=== PATIENT | female | born 2000 | race Caucasian/White ===

== ENCOUNTER 2025-07-30 19:28 | Inpatient (IN) | payer SELFPAY, OTHER ==
[2025-07-30 19:49] VITALS: BP 131/82; PULSE 115; PULSE 118; RESP 16; TEMP 36.6; O2SAT 94
[2025-07-30 20:20] VITALS: BMI 24.7
[2025-07-31] VITALS (20 sets, daily range): BP systolic 114–136; BP diastolic 69–91; PULSE 82–116; RESP 16–18; TEMP 36.1–36.8; O2SAT 95–99
[2025-07-31 05:52] LABS: Hematocrit 35.1 % (37-47); Hemoglobin 12.2 g/dL (12.0-15.0); Immature Granulocytes Count 0.050 X10^3/uL (0.0-0.0); Mean Corp Hgb Conc 34.8 g/dL (32-36); Mean Corpuscular Volume 94.6 fL (81-99); Mean Platelet Vol. 10.0 fl (6.2-12.0); NRBC Flagged by Analyzer 0 % (0-5); Platelet Count 194 K/mm3 (150-450); RBC Distribution Width CV 12.9 % (11.6-14.6); RBC Distribution Width SD 44.5 fl (35.1-43.9); Red Blood Count 3.71 M/mm3 (4.2-5.4); White Blood Count 8.7 K/mm3 (4.4-11.0)
[2025-07-31 06:37] LABS: Hepatitis C Antibody Nonreactive (Nonreactive)
[2025-07-31 07:12] LABS: HIV Nonreactive (Nonreactive); Hepatitis B Surface Antigen Nonreactive (Nonreactive); Syphilis Antibodies Nonreactive (Nonreactive)
--- OUTSIDE RECORDS SUMMARY | 2025-07-31 08:20 | XMS RPT_ITS | CCD ---
Author Organization [facility] CliniSywy Care Team Providers Care Landscaper Name Role Phone EZ BULLOCK Attending Unavailable EZ BULLOCK Primary Care Unavailable EZ BULLOCK Admitting Unavailable [place], FLEX LOTT-LYNETTE Attending Unavailabl e [place], FLEX LOTT-LYNETTE Primary Care Unavailabl e [place], FLEX CARDOSO Admitting Unavailabl e Problems Problem Classification Problem Date Documented Da te Episodic/Chronic Other complications of (3 sources) Maternal care for other known or suspected poor growth, third trimester, not applicable or unspecified; Translations: [Maternal care for other known or suspected poor growth, third trimester, not applicable or unspecified] Onset: 07-27-2025 Episodic Residual codes; unclassified (1 source) 34 weeks gestation of ; Translations: [34 weeks gestation of ] Onset: 07-27-2025 Episodic Results Test Name Value Interpretation Reference Range Facil ity US BIOPYHSICAL PROFILE (FETA L)W/O NON STon 07-27-2025 US BIOPYHSICAL PROFILE ()W/O NON [address] [address] Patient: ARLEHT BORGES Phone#: : 2000 Age: 25 Gender: F Pt. Type: Out Account: [id number] Location: Ordering: FLEX GARIBAY Exam Date: 07/27/2025/14:06 Family Phys: Charge Code: [id number] Physician: Collin Order #: [id number] Dose#: PROCEDURE: US BIOPYHSICAL PROFILE ()W/O NON ST COMPARISON: None. INDICATIONS: Suspected small for gestational age or growth restriction. TECHNIQUE: Complete sonographic examination for obstetrical and evaluation. FINDINGS: NUMBER: Single. POSITION: Vertex. AMNIOTIC FLUID VOLUME: Normal for age with RAJNI of 11.0 cm. PLACENTA LOCATION: Fundal left lateral. ESTIMATED WEIGHT: 2409 grams/5 pounds 5 ounces HEART RATE: 139 bpm ABNORMALITIES/OTHER: None. CLINICAL GA: 38 weeks 4 days CLINICAL ANI: August 06, 2025 ULTRASOUND GA: 34 weeks 3 days ULTRASOUND ANI: September 04, 2025 BIOPHYSICAL PROFILE: MOVEMENTS: 2 BREATHIN TONE: 2 CARDIAC ACCEL: - AMNIOTIC FLUID: 2 CONCLUSION: 1. SL IUP 34 weeks 3 days, ANI September 04, 2025 ultrasound age is less than clinical age. 2. BPP is 8/8 Dictated by: Angela Taylor MD on 07/27/2025 at 16:26 Approved by: Angela Taylor MD on 07/27/2025 at 16:30 Normal [facility] CT NECK W/CONTRASTon 023 CT NECK W/CONTRAST [place] [address] Patient: ARLETH WKON Phone#: : 2000 Age: 22 Gender: F Pt. Type: Out Account: [id number] Location: Ordering: EZ BULLOCK Exam Date: 02/06/2023/10:49 Family Phys: Charge Code: [id number] Physician: Collin Order #: [id number] Dose#: 5.4 mGy PROCEDURE: CT NECK WITH CONTRAST COMPARISON: None. INDICATIONS: Cervical lymphadenopathy. TECHNIQUE: After obtaining the patient's consent, CT images were created with non-ionic intravenous contrast material. All CT scans at this facility use dose modulation, iterative reconstruction, and/or weight based dosing when appropriate to reduce radiation dose to as low as reasonably achievable. IV CONTRAST: Omnipaque 350,60ml TOTAL DOSE: 5.4 CTDIvol(mGy) FINDINGS: NASOPHARYNX: Normal. Fossae of Rosenmuller and torus tubarius are symmetric. ORAL CAVITY: Normal. No visible mass. OROPHARYNX: Normal. Faucial and lingual tonsils are symmetric. HYPOPHARYNX: Normal. No mass or other visible lesion. LARYNX: Normal. The vocal cords are symmetric and without mass. SINUSES: Normal. Limited views show no significant fluid or mucosal thickening. NECK GLANDS: Normal. The parotid, submandibular, and thyroid glands are unremarkable. LYMPH NODES: Normal. No pathological-appearing or enlarged lymph nodes. SKULL BASE: Normal. Foramina are symmetric without bony erosion. VASCULATURE: Normal. Limited views are unremarkable. 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 There is straightening of the normal cervical lordosis. OTHER: Normal. No additional imaging findings. CONCLUSION: 1. There is no evidence focal soft tissue abnormality. 2. There is straightened cervical lordosis. 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 Dictated by: Angela Taylor MD on 02/06/2023 at 16:31 Continued Report - Page 2 of 2 Patient: ARLETH KWON Phone#: : 2000 Age: 22 Gender: F Pt. Type: Out Account: [id number] Location: Ordering: EZ BULOLCK Exam Date: 02/06/2023/10:49 Family Phys: Charge Code: [id number] Physician: Collin Order #: [id number] Dose#: 5.4 mGy Approved by: Angela Taylor MD on 02/06/2023 at 16:34 Normal [facility] BREAST BILAT COMPLETEon 0 02-06-2023 BREAST BILAT COMPLETE [place] [address] Patient: ARLETH KWON Phone#: : 2000 Age: 22 Gender: F Pt. Type: Out Account: [id number] Location: Ordering: EZ BULLOCK Exam Date: 02/06/2023/10:09 Family Phys: Charge Code: [id number] Physician: Collin Order #: [id number] Dose#: PROCEDURE: ULTRASOUND BREAST BILAT COMPARISON: None. INDICATIONS: Right sided lump TECHNIQUE: Breast ultrasound was performed, with evaluation focusing on all four quadrants. FINDINGS: DIAGNOSTIC CATEGORY 1--NEGATIVE ASSESSMENT. RIGHT BREAST: No significant suspicious finding. LEFT BREAST: No significant suspicious finding. RECOMMENDATIONS: CLINICAL EVALUATION. PLEASE NOTE: A NORMAL MAMMOGRAM DOES NOT EXCLUDE THE POSSIBILITY OF BREAST CANCER. A CLINICALLY SUSPICIOUS PALPABLE LUMP SHOULD BE BIOPSIED. Dictated by: Merced Garzon MD on 02/06/2023 at 12:41 Approved by: Merced Garzon MD on 02/06/2023 at 12:41 Normal [facility] Encounters Encounter Date Encounter Type Care Provider Facility Start: 07-27-2025 End: 07-27-2025 ambulatory [facility] Start: 02-06-2023 End: 02-06-2023 ambulatory EZ BULLOCK [facility] Payers Date Payer Category Payer Unknown [id number] 2000 Unknown [id number] Unknown Summary Purpose Family History No Family History Records FoundNo Family History Records Found Advance Directives No Advanced Directives Records FoundNo Advanced Directives Records Found Additional Source Comments INFORMATION SOURCE (unrecogn ized section and content) DATE CREATED AUTHOR 02/08/2023 [facility] DATE CREATED AUTHOR AUTHOR'S ORGANIZ ATION 07/29/2025 [facility] FOR RECORDS PERTAINING TO PATIENTS WHO ARE OR HAVE BEEN ENROLLED IN A CHEMICAL DEPENDENCY/SUBSTANCEABUSE PROGRAM, SOME INFORMATION MAY BE OMITTED. This clinical summary was aggregated from multiple sources. Caution should be exercised in using it in the provision of clinical care. This summary normalizes information from multiple sources, and as a consequence, information in this document may materially change the coding, format and clinical context of patient data. In addition, data may be omitted in some cases. CLINICAL DECISIONS SHOULD BE BASED ON THE PRIMARY CLINICAL RECORDS. [facility] [employer] provides no warranty or guarantee of the accuracy or completeness of information in this document.
--- NOTE | 2025-07-31 08:44 | PCM.HP.OB ---
HPI - General General Date of Admission: 07/30/25 HPI Narrative ARLETH BORGES, is a 25 F @ 39 weeks who presents with new diagnosis of IUGR. Her is measuring 4 weeks behind. Previous ultrasound was measuring 13 days behind and her due date was dated based off of consistent regular menses and a positive test at 6 weeks of . Her management department chair from other [facility] states that her fundal heights have dropped off the last few weeks and that is where she got the ultrasound. 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 term PFSH PFSH Home Medications ?Medication ?Instructions ?Recorded ?Last Taken ?Type vit no.95-ferrous 1 tab PO DAILY see provid 07/30/25 07/30/25 12:00 History fumarate 28 mg-folic acid 800 mcg tablet () Allergy/AdvReac Type Severity Reaction Status Date / Time No Known Allergies Allergy Verified 07/30/25 19:53 Surgical History (Updated 07/30/25 @ 20:23 by Elodia Angulo) Hx of tonsillectomy Social History Smoking Status: Never smoker History Elective abortions Hx Para 1 Spontaneous abortions Hx # Term Pregnancies Ectopic pregnancies Hx # Pregnancies Multiple births # of living children NST FHR Rate Baby A Baseline: 130 Variability:: Moderate Accelerations:: 15 x 15 Decelerations:: None NST Reactive:: Yes FHR Category:: Category I Uterine Activity:: irregular ROS Constitutional Constitutional: Reports systems reviewed and no addt'l complaints, except as documented Eyes Eyes: Denies change in vision ENT HEENT: Reports systems reviewed and no addt'l complaints, except as documented; Denies headache(s) Cardiovascular Cardiovascular: Reports systems reviewed and no addt'l complaints, except as documented; Denies chest pain or dyspnea Respiratory/Chest Respiratory/Chest: Reports systems reviewed and no addt'l complaints, except as documented Gastrointestinal Gastrointestinal: Reports systems reviewed and no addt'l complaints, except as documented; Denies abdominal pain Genitourinary Genitourinary: Reports systems reviewed and no addt'l complaints, except as documented, contractions Details: present (irregular) and movement Details: present; Denies dysuria or genital lesions Musculoskeletal Musculoskeletal: Reports systems reviewed and no addt'l complaints, except as documented Neurologic Neurologic: Reports systems reviewed and no addt'l complaints, except as documented Endocrine Endocrinology: Reports systems reviewed and no addt'l complaints, except as documented Vital Signs Vital Signs Vital Signs: 07/30/25 19:49 07/30/25 19:49 07/30/25 19:49 Temperature Temperature Source Pulse Rate 115 H 118 H Respiratory Rate Blood Pressure 131/82 H BP Systolic 131 BP Diastolic 82 Pulse Ox 07/30/25 19:49 07/30/25 19:49 07/30/25 19:49 Temperature Temperature Source Temporal Pulse Rate Respiratory Rate 16 Blood Pressure BP Systolic BP Diastolic Pulse Ox 94 07/30/25 19:49 Temperature 97.9 F Temperature Source Pulse Rate Respiratory Rate Blood Pressure BP Systolic BP Diastolic Pulse Ox Weight Weight: 126 lb 6.4 oz Body Mass Index (BMI) 24.7 Physical Exam Const alert, oriented x3, no apparent distress and healthy appearing HEENT normocephalic and moist oral mucous membranes Head and Scalp: atraumatic Neck full ROM, no lymphadenopathy, supple and thyroid normal General: trachea midline Lymph Lymphatic: no lymphadenopathy noted Chest inspection of chest normal Resp normal respiratory effort Cardio regular rate GI soft to palpation and non-tender GI Narrative: gravid Inspection: gravid external exam normal Manual OB Exam: estimated gestational size appropriate, presentation cephalic, dilated, effaced and station Extremity normal to inspection General Extremity: Negative for edema Skin no rashes or lesions noted Neuro no focal motor deficits and deep tendon reflexes 2+ bilaterally Motor Exam: strength 5/5 throughout and clonus absent Psych mental status grossly normal Labs Labs Labs: Blood Type A NEGATIVE Antibody Screen NEGATIVE Hct 35.1 % (37-47) L Hgb 12.2 g/dL (12.0-15.0) Syphilis Total Ab Nonreactive (Nonreactive) Rubella IgG Antibody Nonreactive (Nonreactive) Hep Bs Antigen Nonreactive (Nonreactive) Hepatitis C Antibody Nonreactive (Nonreactive) HIV 1&2 Antibody Nonreactive (Nonreactive) Assessment & Plan (1) IUGR (intrauterine growth restriction): (2) : (3) Encounter for induction of labor: PLAN: Plan Patient presents IOL, plan management for with pitocin/AROM. Pain management: minimal intervention. GBS unknown- will treat based on risk factors Management of any complications: none I have reviewed the [facility] and made any clinically relevant updates.
[2025-07-31] MEDS: Lactated Ringers 1,000 ML 50 ML IV (08:51)
--- OUTSIDE RECORDS SUMMARY | 2025-07-31 09:09 | XMS RPT_ITS | CCD ---
Author Organization [facility] CliniSyma Care Team Providers Care Superintendent Automotive Name Role Phone EZ BULLOCK Attending Unavailable [...] STon 07-27-2025 US BIOPYHSICAL PROFILE ()W/O NON [address] [address] Patient: ARLETH BORGES Phone#: : 2000 Age: 25 Gender: F Pt. Type: Out Account: [id number] Location: Ordering: FLEX GARIBAY Exam Date: 07/27/2025/14:06 Family Phys: Charge Code: [id number] Physician: [place] Order #: [id number] Dose#: PROCEDURE: US BIOPYHSICAL PROFILE ()W/O NON [...] Taylor MD on 07/27/2025 at 16:[address] [facility] [address] NECK W/CONTRASTon 023 CT NECK W/CONTRAST [place] [address] Patient: ARLETH KWON Phone#: : 2000 Age: 22 Gender: F Pt. Type: Out Account: [id number] Location: Ordering: EZ BULLOCK Exam Date: 02/06/2023/10:49 Family Phys: Charge Code: [id number] Physician: [place] Order #: [id number] Dose#: 5.4 mGy PROCEDURE: CT NECK WITH [...] 22 Gender: F Pt. Type: Out Account: [id number] Location: Ordering: EZ BULLOCK Exam Date: 02/06/2023/10:49 Family Phys: Charge Code: [id number] Physician: [place] Order #: [id number] Dose#: 5.4 mGy Approved by: Angela Taylor MD on 02/06/2023 at 16:34 Normal [facility] BREAST BILAT COMPLETEon 0 02-06-2023 BREAST BILAT COMPLETE [place] [address] Patient: ARLETH KWON Phone#: : 2000 Age: 22 Gender: F Pt. Type: Out Account: [id number] Location: Ordering: EZ BULLOCK Exam Date: 02/06/2023/10:09 Family Phys: Charge Code: [id number] Physician: [place] Order #: [id number] Dose#: PROCEDURE: ULTRASOUND BREAST BILAT COMPARISON: None. [...] Garzon MD on 02/06/2023 at 12:41 Normal [facility] Encounters Encounter Date Encounter Type Care Provider Facility Start: 07-27-2025 End: 07-27-2025 ambulatory [facility] Start: 02-06-2023 End: 02-06-2023 ambulatory EZ BULLOCK [facility] Payers Date Payer Category Payer Unknown [id number] 2000 Unknown [id number] Unknown Summary Purpose Family History No Family History Records FoundNo Family History Records Found Advance Directives No Advanced Directives Records FoundNo Advanced Directives Records Found Additional Source Comments INFORMATION SOURCE (unrecogn ized section and content) DATE CREATED AUTHOR 02/08/2023 [facility] DATE CREATED AUTHOR AUTHOR'S ORGANIZ ATION 07/29/2025 [facility] FOR RECORDS PERTAINING TO PATIENTS WHO ARE [...] BE BASED ON THE PRIMARY CLINICAL RECORDS. [facility] [employer] provides no warranty or guarantee of the accuracy or completeness of information in this document.
[2025-07-31] MEDS: Oxytocin 15 Units/NS 250ml 15 UNITS/250 ML IV.SOLN 2 UNITS IV (09:47)
--- NOTE | 2025-07-31 12:25 | PCM.PN.BLA ---
Progress Note arom clear fluid /-1 pit per protocol
--- NOTE | 2025-07-31 17:58 | OB.VAGDELI_ITS ---
Assessment & Plan (1) Encounter for induction of labor: (2) : (3) IUGR (intrauterine growth restriction): Vaginal Delivery Maternal Presentation Maternal Presentation: 39 week IOL IUGR from [facility] Vaginal Delivery Information Procedure Performed: Spontaneous Vaginal Delivery Surgeon/Practitioner: Nan Whitfield Date of Procedure: 07/31/25 Type of anesthesia: Epidural Estimated Blood Loss: 200 Findings Description of procedure: Patient began pushing and delivered the head in the JA presentation. The head was delivered atraumatically . The anterior and posterior shoulders delivered without complication followed by the rest of the infant and the was placed on the maternal abdomen. Delayed cord clamping was employed for approximately 60 seconds. Cord was clamped and cut and gentle traction was applied to the cord and the placenta delivered spontaneously immediately following it was noted to be intact with three-vessel cord. The perineum and vagina were inspected and noted to have no laceration. EBL was 200. Patient and infant tolerated delivery well. Presentation: Vertex Placental Delivery Description: Spontaneous Specimen collected: Yes Description of specimen(s) removed: placenta Large Animal Husbandry Technician engine dispatcher: No Post Vaginal Deli Medications given after delivery: Other (pitocin) Complication Complications: No Multi Select Codes Urinary/Genital Urinary/Genital CPT Codes: 73635 Vaginal Delivery Only
--- NOTE | 2025-07-31 17:59 | DCINST_ITS ---
Discharge Instructions DC O2, CPAP, BIPAP needs Home O2 Discharge instructions: No Dressing / Incision Discharge Activity: Return to Normal Activity, May Not Drive (while taking narcotic pain medications.) and May Shower May resume sexual activity in: 4-6 weeks Dressing / Incision Call your doctor if your incision/area has: Continuous Slow Oozing, Sudden Increased Bleeding, Increased Pain/ Swelling, Increased Redness and Foul Smelling Discharge Follow Up Care Please Follow Up With: Nan Whitfield MD When: Call [phone] to make an appointment with your doctor in 6 weeks. If you had elevated blood pressure or 4th degree laceration, you will need to be seen in 2 weeks. Test Results: Test results from this visit will be discussed in further detail at your follow- up appointment, if applicable. Discharge Plan Admission Admit Date/Time: 07/30/25 19:28 Attending Provider: Nan Whitfield Discharge Orders/Prescriptions Prescriptions: No Action PNV no.95-ferrous fumarate-FA [] 28 mg iron- 800 mcg tablet 1 tab PO DAILY
[2025-07-31] MEDS: Oxytocin 15 Units/NS 250ml 15 UNITS/250 ML IV.SOLN 83 UNITS IV (18:01)
[2025-08-01 00:05] VITALS: BP 110/70; PULSE 90; RESP 16; TEMP 36.8; O2SAT 97
[2025-08-01 04:15] VITALS: BP 114/85; PULSE 77; RESP 16; TEMP 36.8
--- NOTE | 2025-08-01 05:31 | NURSING ---
MMR offered to pt for rubella non-immune status. pt declines at this time.
--- NOTE | 2025-08-01 07:45 | PCM.PN.OB ---
Subjective Subjective Patient doing well without complaints. Tolerating PO. Ambulating and voiding without difficulty. Feeding well. Denies chest pain, shortness of breath, calf pain/swelling, fevers, chills, lightheadedness. Objective Data Objective Data Vital Signs: Vital Signs Temp Pulse Resp BP Pulse Ox O2 Del Method 98.2 F 77 16 114/85 H 97 Room Air 08/01/25 04:15 08/01/25 04:15 08/01/25 04:15 08/01/25 04:15 08/01/25 00:05 08/01/25 04:15 Oxygen Delivery Method Room Air Weight: 126 lb 6.4 oz Body Mass Index (BMI) 24.7 Intake & Output: Intake and Output for Last 24 Hours 07/30/25 07/31/25 08/01/25 23:59 23:59 23:59 Intake Total 860.66 / 860.66 Output Total 900 / 900 2 / 2 Balance -39.34 / -39.34 -2 / -2 Lab / Micro Data 07/31/25 05:40 Micro: Microbiology 07/31/25 04:45 Urine, Clean Catch Chlamydia/Neisseria (PCR) - Final 07/30/25 20:45 Genital vaginal Group B Streptococcus (PCR) - Final ROS Constitutional Constitutional: Reports systems reviewed and no addt'l complaints, except as documented Cardiovascular Cardiovascular: Reports as per HPI Respiratory/Chest Respiratory/Chest: Reports as per HPI Genitourinary Genitourinary: Reports as per HPI Physical Exam Const alert and oriented x3 HEENT normocephalic Eyes PERRL Neck full ROM Resp normal respiratory effort GI soft to palpation GI Narrative: FF below U Assessment & Plan (1) Spontaneous vaginal delivery: COMMENT: 07/31/25 boy Kye SM. SGA-IOL from drafting layout man (2) Rh negative status during : QUALIFIERS: Trimester: unspecified trimester Qualified Code(s): O26.899 - Other specified related conditions, unspecified trimester; Z67.91 - Unspecified blood type, Rh negative (3) Rubella non-immune status, antepartum: PLAN: Plan s/p PPD # 1 1. routine post delivery care 2. breast feeding- support given 3. rh negative-rhogam pp 4. rubella nonimmune offer MMR pp 5. home today
[2025-08-01 08:50] VITALS: BP 110/74; PULSE 93; RESP 16; TEMP 36.5; O2SAT 97
[2025-08-01 12:02] VITALS: BP 114/78; PULSE 76; RESP 16; TEMP 36.8; O2SAT 97
[2025-08-01 15:39] VITALS: BP 119/78; PULSE 67; RESP 15; TEMP 36.7
== END 2025-08-01 18:50 | disposition home or self-care (01) | DRG 807 ==
PROVIDERS: Admitting Provider Obstetrics & Gynecology; Referring Provider Obstetrics & Gynecology; Visit Provider Obstetrics & Gynecology
DX: O36.5930 Maternal care for other known or suspected poor fetal growth, third trimester, not applicable or unspecified (principal); Z37.0 Single live birth; O26.893 Other specified pregnancy related conditions, third trimester; Z3A.39 39 weeks gestation of pregnancy; Z67.91 Unspecified blood type, Rh negative
CPT/HCPCS: 59025; 59050; 85025; 86703; 86762; 86780; 86803; 86850; 86900; 86901; 87081; 87340; 87491; 87591; 87653; 99221; G0378